=== PATIENT | male | born 1980 | race Caucasian/White ===

== ENCOUNTER 2025-04-13 18:51 | Inpatient (IN) | payer OTHER ==
[2025-04-13 19:26] VITALS: BMI 30.6
[2025-04-13] MEDS ORDERED: NALOXONE (NARCAN) HCL 4 MG/0.1 ML SPRAY NS PRN (20:08)
[2025-04-13] MEDS ORDERED: IBUPROFEN 400 MG TABLET (FP) PO PRN (20:08)
[2025-04-13] MEDS ORDERED: MAGNESIUM HYDROX 2400MG/30ML ORAL SUSPENSION 30 ML CUP PO PRN (20:08)
[2025-04-13] MEDS ORDERED: ACETAMINOPHEN 325 MG TABLET (FP) PO PRN (20:08)
[2025-04-13] MEDS ORDERED: DICYCLOMINE HCL 10 MG CAPSULE PO PRN (20:08)
[2025-04-13] MEDS ORDERED: BENZONATATE 200 MG CAPSULE PO PRN (20:08)
[2025-04-13] MEDS ORDERED: BENZOCAINE/MENTHOL (CHLORASEPTIC ) LOZENGE MM PRN (20:08)
[2025-04-13] MEDS ORDERED: guaiFENesin 600 MG TABLET.ER (FP) PO PRN (20:08)
[2025-04-13] MEDS ORDERED: LOPERAMIDE HCL 2 MG CAPSULE PO PRN (20:08)
[2025-04-13] MEDS ORDERED: POLYETHYLENE GLYCOL (HEALTHYLAX) 3350 17 GM PACKET PO PRN (20:08)
[2025-04-13] MEDS ORDERED: BISMUTH SUBSALICYLATE 524 MG/30 ML PO PRN (20:08)
[2025-04-13] MEDS ORDERED: MAG HYDROX/AL HYDROX/SIMETH 30 ML UNIT-DOSE CUP PO PRN (20:08)
[2025-04-13] MEDS: MELATONIN 5 MG TABLETS PO SCH (22:24)
[2025-04-13] MEDS: METHOCARBAMOL 500 MG TABLET PO PRN (22:24)
[2025-04-13] MEDS: THIAMINE 100 MG TABLET PO SCH (22:24)
[2025-04-14] MEDS: ONDANSETRON *ODT* 4 MG TABLET SL PRN (05:23)
[2025-04-14] MEDS: hydrOXYzine PAMOATE 25 MG CAPSULE (FP) PO PRN (07:23)
[2025-04-14] MEDS ORDERED: INSULIN ASPART SLIDING SCALE (NOVOLOG) 1 VIAL SQ ONE (07:37)
[2025-04-14] MEDS: TRIMETHOBENZAMIDE HCL 200MG/2ML INJ IM ONE (10:14)
[2025-04-14] MEDS: PRENATAL VITAMINS W/ FOLIC ACID TABLET (FP) PO SCH (10:58)
[2025-04-14 11:46] LABS: MCHC 32.5 g/dl (32.3-36.5); MEAN CELL VOLUME 93.7 fl (79.0-92.2); MEAN PLT VOLUME 10.0 fl (9.4-12.4); RDW 14.8 % (12.1-15.9)
[2025-04-14 13:07] LABS: CO2 30.0 mmol/L (21-32); GLUCOSE,RANDOM 78.0 mg/dL (74-106)
[2025-04-14 13:10] LABS: CREATININE 0.6 mg/dL (0.55-1.3); SGOT/AST 160.0 U/L (15-37); SGPT/ALT 102.0 U/L (13-61)
[2025-04-14 13:12] LABS: ALK PHOS 88.0 U/L (45-117); TOT PROT 6.9 g/dl (6.4-8.2)
[2025-04-14] MEDS: LACTULOSE 20 GM/30 ML UDC (FOR ORAL USE ONLY) PO SCH (13:58)
[2025-04-15] MEDS: IBUPROFEN 600 MG TABLET (FP) PO PRN (05:37)
[2025-04-15 13:37] LABS: MCHC 32.5 g/dl (32.3-36.5); MEAN CELL VOLUME 93.6 fl (79.0-92.2); MEAN PLT VOLUME 10.9 fl (9.4-12.4); RDW 14.6 % (12.1-15.9)
[2025-04-15 14:36] LABS: HIV INTERPRETATION NEGATIVE (NEGATIVE)
[2025-04-15 17:24] LABS: EPI CELLS 12 /uL (0-25.1); HYALINE CASTS 12 /uL (0-3.1); URINE APPEARANCE TURBID; URINE BILIRUBIN 3+ (NEGATIVE); URINE COLOR ORANGE; URINE GLUCOSE (UA) TRACE (NEGATIVE); URINE KETONE 1+ (NEGATIVE); URINE LEUK ESTERASE 1+ (NEGATIVE); URINE NITRITE POSITIVE (NEGATIVE); URINE PROTEIN 2+ (NEGATIVE); URINE UROBILINOGEN 2.0 mg/dL (0.2-1.0)
[2025-04-15 17:54] LABS: URINE BACTERIA 3.8 /uL (0-1359); URINE RBC 243.1 /uL (0-23.9)
[2025-04-16] MEDS: POTASSIUM CHLORIDE ORAL LIQUID 20 MEQ/15 ML PO ONE (11:17)
[2025-04-17] MEDS: AMOX TR/POT CLAV 875MG/125MG TABLETS (FP) PO SCH (07:31)
[2025-04-18 06:36] VITALS: BP 103/67; PULSE 63; RESP 17; TEMP 97.1
== END 2025-04-18 09:06 | disposition home or self-care (01) | DRG 775 ==
LOC: YASAS 18:51 → Y3N 20:26
PROVIDERS: ADMIT Neuromusculoskeletal Medicine & OMM; ATTEND Allergy & Immunology
PROC: HZ2ZZZZ Detoxification Services for Substance Abuse Treatment (ICD-10-PCS; principal; 2025-04-13)
DX: F10.230 Alcohol dependence with withdrawal, uncomplicated (principal); F41.8 Other specified anxiety disorders; N39.0 Urinary tract infection, site not specified
CPT/HCPCS: 36415; 80053; 80305; 80307; 81003; 82140; 85025; 85027; 86780; 87389; 93005; 93010; Q0162